=== PATIENT | female | born 1955 | race Caucasian/White ===

== ENCOUNTER 2020-07-08 07:11 | Day surgery (SDC) | payer MEDICARE, BC ==
[~2020-07-08 07:11] MED LIST: Lactated Ringers 1,000 ML IV SCH; Sodium Chloride 0.9% 10 ML Syringe FLUSH PRN
[2020-07-08] MEDS ORDERED: Propofol 200 MG/20 ML SDV ONE (08:11)
[2020-07-08] MEDS ORDERED: fentaNYL 100 MCG/2 ML SDV ONE (08:11)
--- NOTE | 2020-07-08 13:18 | OR ---
DATE OF SURGERY: 07/08/2020. REFERRING PROVIDER: Marilyn Armas DO PRE-OPERATIVE DIAGNOSIS: Screening colonoscopy. This is the patient's first colonoscopy. She denies any family history of colon cancer. She does have a personal history of hemorrhoids, which do bleed intermittently. POST-OPERATIVE DIAGNOSES: 1. 2 mm rectal polyp removed using cold forceps. 2. Moderate to significant hemorrhoids, mostly external, although there is 1 larger hemorrhoid with stalk. Could consider office procedure with anoscopy for removal with General Surgery. 3. Normal-appearing distal ileum. PROCEDURE: Colonoscopy with polypectomy x1 using cold forceps. SURGEON: John Olson M.D. ANESTHESIA: Monitored anesthesia care. BOWEL PREP: Good. Ciara is a 64-year-old female who was brought to the endoscopy suite after discussing risks and benefits of the procedure. Informed consent was obtained for conscious sedation and colonoscopy with or without biopsy and/or polypectomy. We also discussed possibility of missed lesions. Pre-procedure exam was unremarkable. IV, oxygen, and monitors were placed. The patient was placed in the left lateral decubitus position. Sedation was administered and a digital rectal exam was performed and remarkable for significant external hemorrhoids, not acutely inflamed. Colonoscope was passed into the rectum and slowly advanced all the way to the cecum. The patient did have a somewhat longer and tortuous colon. This did require some abdominal pressure. Cecum was viewed and photographed. Ileocecal valve was intubated and distal ileum was normal in appearance. The colonoscope was slowly withdrawn and the mucosa was closed observed in a direct circumferential manner. The ascending colon was unremarkable. The transverse colon was unremarkable. The descending colon was unremarkable. The sigmoid colon was unremarkable. Retroflexion was performed and rectal mucosa revealed 2 mm rectal polyp removed using cold forceps. There was also the larger hemorrhoid with stalk. This could be treated with office procedure using anoscopy. We are using anoscopy and possible banding. Scope was removed. The patient tolerated the procedure well. The patient was monitored until that baseline status. Discharge instructions were reviewed and the patient was discharged in good condition. COMPLICATIONS: None. TOTAL TIME: 26 minutes. ESTIMATED BLOOD LOSS: Less than 1 mL. RECOMMENDATIONS/FOLLOW-UP: We will await results of path report to determine ideal followup interval. Can consider office procedure with anoscopy and possible banding for treatment of the hemorrhoid/hemorrhoids. I would like to kindly thank Marilyn Armas for this referral. DMB: 07/08/2020 10:02:18 MODL: 07/08/2020 11:48:07 /[id number]
== END 2020-07-08 10:00 | disposition home or self-care (01) ==
LOC: VM.SDS 07:11
PROVIDERS: ATTEND Family Medicine
DX: Z12.11 Encounter for screening for malignant neoplasm of colon (principal); K62.1 Rectal polyp; K64.4 Residual hemorrhoidal skin tags; E11.9 Type 2 diabetes mellitus without complications; E66.9 Obesity, unspecified; E78.1 Pure hyperglyceridemia; Z68.31 Body mass index [BMI] 31.0-31.9, adult; Z79.899 Other long term (current) drug therapy
CPT/HCPCS: 00812; 82962; 88305; J2704; J3010; J7120

== ENCOUNTER 2021-12-07 14:56 | Emergency (ER) | payer MEDICARE, BC ==
[2021-12-07] MEDS ORDERED: Lactated Ringers 1,000 ML IV ONE (15:16)
[2021-12-07] MEDS ORDERED: Ondansetron 4 MG/2 ML SDV IVPUSH ONE (15:16)
[2021-12-07] MEDS ORDERED: Prochlorperazine 10 MG/2 ML SDV IV ONE (15:51)
[2021-12-07] MEDS ORDERED: LORazepam 2 MG/ML SDV IVPUSH ONE (15:51)
[2021-12-07 15:52] LABS: ANION GAP 17.7 mmol/L (5-15); CHLORIDE,CL 103 mmol/L (98-107); ESTIMATED GFR 81 mL/min (>=60); SODIUM,NA 140 mmol/L (136-145)
[2021-12-07] MEDS ORDERED: Iopamidol 755 Mg/ML 100 ML Bottle IVPUSH ONE (16:23)
== END 2021-12-07 18:52 | disposition home or self-care (01) ==
LOC: VM.ED 14:56
DX: R42 Dizziness and giddiness (principal); E78.00 Pure hypercholesterolemia, unspecified; E11.9 Type 2 diabetes mellitus without complications; E66.9 Obesity, unspecified; Z68.30 Body mass index [BMI] 30.0-30.9, adult
CPT/HCPCS: 36415; 70496; 80053; 81003; 83735; 84484; 85025; 93010; 96361; 96374; 96375; 99284; 99285-25; J0780; J2060; J2405; J7120